=== PATIENT | female | born 1970 ===

== ENCOUNTER 2017-03-19 00:08 | Emergency (ER) | payer SELFPAY ==
[2017-03-19 00:30] VITALS: BP 147/79; PULSE 101; RESP 18; TEMP 98.9; O2SAT 100
[2017-03-19] MEDS ORDERED: Albuterol-Ipratrop 3 mg / 0.5 (3 ml) UD INH STA (00:34)
[2017-03-19] MEDS ORDERED: Promethazine/Cod 6.25mg-10mg/5ml Syr UD PO STA (00:34)
--- NOTE | 2017-03-19 00:48 | ED PDOC ---
HPI: CCC, URI, Sore Throat Time Seen by Provider: 03/19/17 00:25 Chief Complaint (Nursing): Fever Chief Complaint (Provider): Cough, congestion, fever History Per: Patient History/Exam Limitations: no limitations Have you had recent travel within the past 21 days to any of the following countries: [place], [place], [place] or [place]?: No Onset/Duration Of Symptoms: Days (4) Current Symptoms Are (Timing): Still Present Associated Symptoms: Fever, Cough, Nasal Congestion Additional History Per: Patient Additional Complaint(s): 46yo female with past medical history of asthma and appendectomy, presents to the ED for evaluation of intermittent fever with chills, dry cough, sore throat and nasal congestion for the past 4 days. Patient states she has been taking ibuprofen for her symptoms with some relief. She denies any vomiting or diarrhea. Patient also states she has not gotten the flu shot this year. No other complaints. Past Medical History Reviewed: Historical Data, Nursing Documentation, Vital Signs Vital Signs: Last Vital Signs Temp 98.9 F 03/19/17 00:27 Pulse 101 H 03/19/17 00:27 Resp 18 03/19/17 00:27 BP 147/79 03/19/17 00:27 Pulse Ox 100 03/19/17 00:54 - Medical History PMH: Asthma - Surgical History Surgical History: Appendectomy - Family History Family History: States: No Known Family Hx, Unknown Family Hx - Social History Current smoker - smoking cessation education provided: No Ex-Smoker (has not smoked in the last 12 months): No Alcohol: None Drugs: Denies - Home Medications Home Medications: Ambulatory Orders Medication Instructions Recorded Albuterol HFA [Ventolin HFA 90 2 puff IH Q4H PRN #1 inh 05/22/16 mcg/actuation (8 g)] Azithromycin [Zithromax] 250 mg PO DAILY #6 dose 05/22/16 Prednisone 50 mg PO DAILY #4 tablet 05/22/16 Albuterol HFA [Ventolin HFA 90 1 - 2 puff IH Q6 PRN #1 inhaler 03/19/17 mcg/actuation (8 g)] Benzonatate [Tessalon Perle] 100 mg PO TID PRN #15 capsule 03/19/17 predniSONE [predniSONE Tab] 60 mg PO QAM #12 tab 03/19/17 - Allergies Allergies/Adverse Reactions: Allergies Allergy/AdvReac Type Severity Reaction Status Date / Time No Known Allergies Allergy Verified 05/21/16 20:52 Review of Systems ROS Statement: Except As Marked, All Systems Reviewed And Found Negative Constitutional: Positive for: Fever, Chills ENT: Positive for: Nose Congestion, Throat Pain Respiratory: Positive for: Cough Gastrointestinal: Negative for: Vomiting, Diarrhea, Constipation Physical Exam - Reviewed Nursing Documentation Reviewed: Yes Vital Signs Reviewed: Yes - Physical Exam Appears: Positive for: Non-toxic, No Acute Distress Head Exam: Positive for: ATRAUMATIC, NORMAL INSPECTION, NORMOCEPHALIC Skin: Positive for: Normal Color Eye Exam: Positive for: Normal appearance ENT: Positive for: Normal ENT Inspection. Negative for: Pharyngeal Erythema Neck: Positive for: Supple Cardiovascular/Chest: Positive for: Regular Rate, Rhythm, Tachycardia Respiratory: Positive for: Wheezing (mild expiratory wheezing) Gastrointestinal/Abdominal: Positive for: Normal Exam, Soft. Negative for: Tenderness Lymphatic: Positive for: Adenopathy (bilateral cervical lymphadenopathy) Neurologic/Psych: Positive for: Alert, Oriented. Negative for: Motor/Sensory Deficits - ECG O2 Sat by Pulse Oximetry: 100 (RA) Pulse Ox Interpretation: Normal Medical Decision Making Medical Decision Making: Time: 33 Impression: 46yo female with URI in setting of known asthma Plan: -- Rapid flu -- Rapid strep -- Duoneb -- Prednisone -- Phenergan -- Chest x-ray Reassess Time: 135 Rapid flu and rapid strep negative. Chest x-ray with no acute diseases. Patient stable for discharge home. Scribe Attestation: Documented by Yuli Lees acting as a scribe for Km Serrato MD. Provider Attestation: All medical record entries made by the Scribe were at my direction and personally dictated by me. I have reviewed the chart and agree that the record accurately reflects my personal performance of the history, physical exam, medical decision making, and the department course for this patient. I have also personally directed, reviewed, and agree with the discharge instructions and disposition. Disposition - Clinical Impression Clinical Impression: Bronchitis - Disposition Disposition: Routine/Home Disposition Time: 01:37 Condition: STABLE Prescriptions: Albuterol HFA [Ventolin HFA 90 mcg/actuation (8 g)] 1 - 2 puff IH Q6 PRN #1 inhaler PRN Reason: Shortness Of Breath Benzonatate [Tessalon Perle] 100 mg PO TID PRN #15 capsule PRN Reason: Cough predniSONE [predniSONE Tab] 60 mg PO QAM #12 tab Instructions: Acute Bronchitis (ED) Forms: [facility] ([place] Citizen)
[2017-03-19] MEDS ORDERED: Albuterol-Ipratrop 3 mg / 0.5 (3 ml) UD ONE (00:51)
[2017-03-19] MEDS ORDERED: Promethazine/Cod 6.25mg-10mg/5ml Syr UD ONE (00:52)
--- NOTE | 2017-03-19 09:58 | RAD ---
HISTORY: cough COMPARISON: Chest radiograph dated 05/21/2016. TECHNIQUE: Chest PA and lateral FINDINGS: LUNGS: No active pulmonary disease. PLEURA: No significant pleural effusion identified. No pneumothorax apparent. CARDIOVASCULAR: Normal. OSSEOUS STRUCTURES: No significant abnormalities. VISUALIZED UPPER ABDOMEN: Normal. OTHER FINDINGS: None. IMPRESSION: No active disease.
== END 2017-03-19 01:49 | disposition home or self-care (01) ==
LOC: H.ER 00:08
DX: J40 Bronchitis, not specified as acute or chronic (principal); J45.909 Unspecified asthma, uncomplicated

== ENCOUNTER 2017-08-13 03:02 | Emergency (ER) | payer OTHER ==
[2017-08-13 03:43] VITALS: BP 127/81; PULSE 79; RESP 17; TEMP 98.7; O2SAT 100
[2017-08-13 04:45] LABS: BASO # 0.1 K/uL (0.0-0.2); BASO % 0.8 % (0.0-2.0); EOS # 0.3 K/uL (0.0-0.7); EOS % 3.6 % (0.0-4.0); HEMOGLOBIN 11.7 g/dL (12.0-16.0); LYMPH % 33.6 % (20.0-40.0); MEAN CELL VOLUME 84.5 fl (81.0-99.0); MEAN CORPUSCULAR HEMOGLOBIN 28.5 pg (27.0-31.0); MEAN CORPUSCULAR HGB CONC 33.7 g/dL (33.0-37.0); MONO # 0.4 K/uL (0.0-0.8); MONO % 4.4 % (0.0-10.0); NEUT # 5.2 K/uL (1.8-7.0); NEUT % 57.6 % (50.0-75.0); RBC 4.1 Mil/uL (3.80-5.20); RED CELL DISTRIBUTION WIDTH 13.5 % (11.5-14.5)
--- NOTE | 2017-08-13 04:50 | ED PDOC ---
HPI: Headache Time Seen by Provider: 08/13/17 03:05 Chief Complaint (Nursing): Headache Chief Complaint (Provider): Headache History Per: Patient History/Exam Limitations: no limitations Onset/Duration Of Symptoms: Days (x3) Current Symptoms Are (Timing): Still Present Quality: "Pain" Associated Symptoms: denies: Vomiting Additional Complaint(s): 47 year old female presents to the ED complaining of headache onset 3 days ago. Reports of right-sided headache and her right side hurts. Denies fever or vomiting. PMD: [facility] (non [facility]) Past Medical History Reviewed: Historical Data, Nursing Documentation, Vital Signs Vital Signs: Last Vital Signs Temp 98.7 F 08/13/17 03:29 Pulse 79 08/13/17 03:29 Resp 17 08/13/17 03:29 BP 127/81 08/13/17 03:29 Pulse Ox 100 08/13/17 03:29 - Medical History PMH: Asthma - Surgical History Surgical History: Appendectomy - Family History Family History: States: Unknown Family Hx - Social History Current smoker - smoking cessation education provided: No Alcohol: None Drugs: Denies - Home Medications Home Medications: Ambulatory Orders Medication Instructions Recorded Albuterol HFA [Ventolin HFA 90 2 puff IH Q4H PRN #1 inh 05/22/16 mcg/actuation (8 g)] Azithromycin [Zithromax] 250 mg PO DAILY #6 dose 05/22/16 Prednisone 50 mg PO DAILY #4 tablet 05/22/16 Albuterol HFA [Ventolin HFA 90 1 - 2 puff IH Q6 PRN #1 inhaler 03/19/17 mcg/actuation (8 g)] Benzonatate [Tessalon Perle] 100 mg PO TID PRN #15 capsule 03/19/17 predniSONE [predniSONE Tab] 60 mg PO QAM #12 tab 03/19/17 Ibuprofen [Motrin] 600 mg PO Q6H PRN #20 tab 08/13/17 - Allergies Allergies/Adverse Reactions: Allergies Allergy/AdvReac Type Severity Reaction Status Date / Time No Known Allergies Allergy Verified 05/21/16 20:52 Review of Systems ROS Statement: Except As Marked, All Systems Reviewed And Found Negative Constitutional: Negative for: Fever Gastrointestinal: Negative for: Vomiting Neurological: Positive for: Headache (right-sided) Physical Exam - Reviewed Nursing Documentation Reviewed: Yes Vital Signs Reviewed: Yes - Physical Exam Appears: Positive for: Well, Non-toxic, No Acute Distress Head Exam: Positive for: ATRAUMATIC, NORMAL INSPECTION, NORMOCEPHALIC Skin: Positive for: Normal Color, Warm, Dry Eye Exam: Positive for: EOMI, Normal appearance, PERRL ENT: Positive for: Normal ENT Inspection Neck: Positive for: Normal, Painless ROM, Supple. Negative for: Decreased ROM Cardiovascular/Chest: Positive for: Regular Rate, Rhythm. Negative for: Murmur Respiratory: Positive for: Normal Breath Sounds. Negative for: Decreased Breath Sounds, Accessory Muscle Use, Respiratory Distress Gastrointestinal/Abdominal: Positive for: Normal Exam, Bowel Sounds, Soft. Negative for: Tenderness, Guarding, Rebound Extremity: Positive for: Normal ROM. Negative for: Tenderness, Pedal Edema, Deformity Neurologic/Psych: Positive for: Alert, Oriented (x3). Negative for: Motor/ Sensory Deficits - Laboratory Results Result Diagrams: 08/13/17 04:42 08/13/17 04:42 - ECG O2 Sat by Pulse Oximetry: 100 (RA) Pulse Ox Interpretation: Normal Medical Decision Making Medical Decision Making: Time: 421 Initial Plan: right sided headache rule out intracranial process --Head w/o contrast [CT] --CMP --CBC w/ differential --Reglan 10mg --Toradol 30mg --Reevaluation Time: 607 EXAM: CT Head Without Intravenous Contrast FINDINGS: Brain: Unremarkable. No hemorrhage. No significant white matter disease. No edema. Ventricles: Unremarkable. No ventriculomegaly. Bones/joints: Unremarkable. No acute fracture. Soft tissues: Unremarkable. Sinuses: Patchy sinus disease. Mastoid air cells: Patchy right mastoid disease. Orbits: The globe and lens are intact. IMPRESSION: No evidence of an acute intracranial hemorrhage, midline shift or mass effect is identified. Clinical Impression: Headache Upon provider evaluation patient is medically stable, feels better, and requires no further treatment in the ED at this time. Patient will be discharged with Motrin 600mg for pain. Counseling was provided and all questions were answered regarding diagnosis and need for follow up with PMD in 1 -2 d. There is agreement to discharge plan. Return if symptoms persist or worsen. Scribe Attestation: Documented by Brett Patton, acting as a scribe for Navid Gresham MD Provider Scribe Attestation: All medical record entries made by the Scribe were at my direction and personally dictated by me. I have reviewed the chart and agree that the record accurately reflects my personal performance of the history, physical exam, medical decision making, and the department course for this patient. I have also personally directed, reviewed, and agree with the discharge instructions and disposition. Disposition - Clinical Impression Clinical Impression: Headache - Patient ED Disposition Is Patient to be Admitted: No Counseled Patient/Family Regarding: Diagnosis, Need For Followup - Disposition Referrals: [facility] [Outside] [facility] [Outside] Disposition: Routine/Home Disposition Time: 05:20 Condition: IMPROVED Additional Instructions: follow up with [facility] primary doctor in 1-2 days return to ED with any worsening or concerning symtoms Prescriptions: Ibuprofen [Motrin] 600 mg PO Q6H PRN #20 tab PRN Reason: Pain, Moderate (4-7) Forms: [facility] ([place]) Print Language: PARAGUAYAN
[2017-08-13 04:54] LABS: ALB/GLOB RATIO 1.1 (1.0-2.1); ALBUMIN 4.3 g/dL (3.5-5.0); ALT/SGPT 54 U/L (9-52); AST/SGOT 30 U/L (14-36); BLOOD UREA NITROGEN 12 mg/dl (7-17); CALCIUM 9.3 mg/dL (8.4-10.2); GFR AFRICAN-AMERICAN > 60; GFR NON-AFRICAN AMERICAN > 60
--- NOTE | 2017-08-13 06:08 | CT ---
EXAM: CT Head Without Intravenous Contrast CLINICAL HISTORY: 47 years old, female; Pain; Headache TECHNIQUE: Axial computed tomography images of the head/brain without intravenous contrast. All CT scans at this facility use one or more dose reduction techniques, viz.: automated exposure control; ma/kV adjustment per patient size (including targeted exams where dose is matched to indication; i.e. head); or iterative reconstruction technique. 310 images are submitted. Coronal and sagittal reformatted images were created and reviewed. Axial reformatted images were created and reviewed. COMPARISON: No relevant prior studies available. FINDINGS: Brain: Unremarkable. No hemorrhage. No significant white matter disease. No edema. Ventricles: Unremarkable. No ventriculomegaly. Bones/joints: Unremarkable. No acute fracture. Soft tissues: Unremarkable. Sinuses: Patchy sinus disease. Mastoid air cells: Patchy right mastoid disease. Orbits: The globe and lens are intact. IMPRESSION: No evidence of an acute intracranial hemorrhage, midline shift or mass effect is identified.
== END 2017-08-13 06:45 | disposition home or self-care (01) ==
LOC: H.ER 03:02
DX: R51 Headache (principal); J45.909 Unspecified asthma, uncomplicated
CPT/HCPCS: 70450; 80053; 85025; 96374; 99284; J1885; J2765